=== PATIENT | female | born 1940 | race Caucasian/White ===

== ENCOUNTER → 2018-08-26 | Day surgery (SDC) | payer MEDICARE, OTHER ==
[~2018-08-26] MED LIST: ATORVASTATIN CA40 MG PO; CHILDREN'S ASPI81 M1 PO; CLONAZEPAM 0.50.5 M1 PO; EFFEXOR XR75 MG PO; ELIQUIS2.5 MG PO; FISH OIL 1,2001 EAC4 PO; OXYBUTYNIN 5 MG5 M1 PO; PHOSLO667 MG PO; SENSIPAR 30 MG30 M1 PO; TOPROL XL25 MG PO; TRIPHROCAPS SOFT1 MG PO
[2018-08-26 11:28] LABS: HEMATOCRIT 36.6 % (37.0-47.0); HEMOGLOBIN 12.1 gm/dL (12.0-15.0); MCH 31.8 pg (26.0-34.0); MCHC 33.1 g/dL (28.0-37.0); MCV 96.2 fL (80.0-100.0); MPV 8.7 fl. (7.2-11.1); RBC 3.81 mil/uL (4.20-5.00); RDW-CV 15.6 % (10.5-14.5); WBC 6.7 thou/uL (4.0-11.0)
[2018-08-26 11:34] LABS: CALCIUM 8.3 mg/dL (8.5-10.1); POTASSIUM 3.8 mmol/L (3.5-5.1)
--- NOTE | 2018-08-26 13:08 | EKG ---
[place] [address] ELECTROCARDIOGRAM REPORT Name: DENISSE SUTTON Room: [facility]#: [id number] Admission: 08/26/18 Attend Phys: Serjio Romero MD Discharge: Date of : 38 Report #: [id number] THIS REPORT FOR: //name// [facility] Test Date: 2018-08-26 Test Time: 11:18:57 Pat Name: DENISSE SUTTON Department: Room: Gender: F [employer] Teacher: : 1940 Requested By: Serjio Romero Order Number: [id number] Renny MD: Kameron Williamson Measurements Intervals [place] Rate: 74 P: MD: QRS: 65 QRSD: 100 T: 115 QT: 386 QTc: 429 Interpretive Statements Atrial fibrillation LVH with secondary repolarization abnormality Compared to ECG 12/15/2007 14:33:34 Left ventricular hypertrophy now present Early repolarization now present Sinus rhythm no longer present T-wave abnormality no longer present Electronically Signed On 08-26-2018 13:08:29 CDT by Kameron Williamson [email or web address] <ELECTRONICALLY SIGNED> By: Kameron Williamson MD, FACC 08/26/18 1308 1118 [id number] Kamreon Williamson MD, [facility] /EPI
--- NOTE | 2018-09-20 11:39 | OP ---
[address] [address] OPERATIVE REPORT Name: LESLEYDENISSE Devon Room: [facility]#: [id number] Admission: 08/26/18 Attend Phys: Serjio Romero MD Discharge: Date of : 38 Report #: [id number] THIS REPORT FOR: //name// CC: Rl Romero DATE OF SERVICE: 08/26/2018 INDICATION FOR PROCEDURE: The patient is a 78-year-old female with a solitary left kidney, chronic ureteral obstruction and chronic renal insufficiency. She has managed her left ureteral obstruction over the years with a left double-J stent without difficulty and presents for routine stent exchange today. PREOPERATIVE DIAGNOSIS: Obstructed primary left ureteral obstruction. POSTOPERATIVE DIAGNOSIS: Obstructed primary left ureteral obstruction. PROCEDURE: Cystoscopy, left stent exchange. SURGEON: Serjio Romero MD ANESTHESIA: General. COMPLICATIONS: None. ESTIMATED BLOOD LOSS: None. DESCRIPTION OF PROCEDURE: The patient was consented for the above procedure, given broad-spectrum IV antibiotics preoperatively. She was given general anesthetic, placed in a dorsal lithotomy position. She was prepped and draped in usual sterile fashion over the genitalia. The stent was easily seen on fluoroscopy without obvious stones. Cystoscopy was performed with a 22-Syriac sheath and 30 degree lens, which revealed a moderate amount of sediment within the bladder, which was irrigated free. The next inspection of the bladder revealed no evidence of stones, ulcerations or tumors. The left double-J stent was in the proper position. It was grasped with a grasping forceps and brought out through the urethral meatus. Next, a 0.035 floppy-tipped guidewire was passed up the stent and up into the left renal pelvis under fluoroscopic guidance without difficulty. The stent was then removed leaving the guidewire in place. A new 6 x 26 double-J stent was passed over the wire with good curl noted in the renal pelvis and in the bladder after removing the wire. This was confirmed with fluoroscopy and cystoscopy. The bladder was [place] [address] OPERATIVE REPORT Name: DENISSE SUTTON Room: [facility]#: [id number] Admission: 08/26/18 Attend Phys: Serjio Romero MD Discharge: Date of : 38 Report #: [id number] was removed. A Uro-Jet was placed per urethra for local anesthesia and she was awakened and sent to recovery room where she remained in stable condition. <ELECTRONICALLY SIGNED> By: Serjio Romero MD 09/20/18 1139 1258 [id number] Romero MD /fiona
== END | disposition home or self-care (01) ==
LOC: M.SUR 07:27
PROVIDERS: Urology
DX: N13.5 Crossing vessel and stricture of ureter without hydronephrosis (principal); I12.9 Hypertensive chronic kidney disease with stage 1 through stage 4 chronic kidney disease, or unspecified chronic kidney disease; N18.9 Chronic kidney disease, unspecified; I48.2 Chronic atrial fibrillation; E78.5 Hyperlipidemia, unspecified; D64.9 Anemia, unspecified; Z98.890 Other specified postprocedural states; Z79.899 Other long term (current) drug therapy; Z79.82 Long term (current) use of aspirin; Z90.5 Acquired absence of kidney; Z99.2 Dependence on renal dialysis; Z85.828 Personal history of other malignant neoplasm of skin; Z90.710 Acquired absence of both cervix and uterus